=== PATIENT | female | born 1950 | race Caucasian/White ===

== ENCOUNTER 2018-04-16 18:37 | Inpatient (IN) | payer OTHER ==
[~2018-04-16] VITALS: Ht 162.6 cm; Wt 96.5 kg
--- NOTE | 2018-04-17 04:57 | NUR ---
SHIFT SUMMARY PT IS ALERT AND ORIENTED. PT IS CALM AND COOPERATIVE WITH CARE. PT CALLS APPROPRIATELY. PT IS INDEPENDENT IN THE ROOM. PT REPORTS ACCEPTABLE LEVEL OF PAIN UPON ADMISSION, NO PAIN MEDS GIVEN UP TO THIS POINT. PT DENIES NAUSEA, VOMITING, AND SOB. PT SLEPT MUCH OF THE NIGHT WITHOUT COMPLICATION. SURGICAL CONSULT CALLED TO ANSWERING SERVICE FOR DR. HOLBROOK. NO ACUTE CHANGES THIS SHIFT. WILL REPORT TO DAY NURSE.
[2018-04-17 04:59] LABS: BASOPHILS ABSOLUTE AUTO 0.03 K/mm3 (0.00-0.23); BASOPHILS PERCENT AUTO 0 % (0-2); EOSINOPHILS ABSOLUTE AUTO 0.02 K/mm3 (0.00-0.68); EOSINOPHILS PERCENT AUTO 0 % (0-6); Hematocrit 40.7 % (33.0-51.0); Hemoglobin 13.3 g/dL (11.5-16.0); IMMATURE GRAN ABSOLUTE AUTO 0.03 K/mm3 (0.00-0.10); IMMATURE GRAN PERCENT AUTO 0 % (0-1); LYMPHOCYTES ABSOLUTE AUTO 1.72 K/mm3 (0.84-5.20); LYMPHOCYTES PERCENT AUTO 16 % (21-46); MONOCYTES ABSOLUTE AUTO 0.91 K/mm3 (0.16-1.47); MONOCYTES PERCENT AUTO 8 % (4-13); Mean Corpuscular HGB 32.9 pg (26.0-34.0); Mean Corpuscular HGB Conc 32.7 g/dL (31.5-36.5); NEUTROPHILS ABSOLUTE AUTO 8.24 K/mm3 (1.96-9.15); NEUTROPHILS PERCENT AUTO 75 % (41-73); Platelet Count 277 K/mm3 (150-400); RDW Coefficient Variation 12.1 % (11.7-14.2); RDW Standard Deviation 45.7 fL (35.1-46.3); Red Blood Cell Count 4.04 M/mm3 (3.80-5.20); White Blood Cell Count 10.95 K/mm3 (4.00-11.30)
[2018-04-17 05:00] LABS: Mean Corpuscular Volume 101 fL (80-100)
[2018-04-17 05:22] LABS: Alanine Aminotransfer (ALT/SGP 440 U/L (12-78); Albumin, Blood 3.1 g/dL (3.4-5.0); Albumin/Globulin Ratio 0.9 (0.8-1.8); Alk Phos 250 U/L (50-136); Anion Gap 7 mmol/L (6-16); Aspartate Aminotrans (AST/SGOT 244 U/L (12-37); Bilirubin, Total 0.6 mg/dL (0.1-1.0); Blood Urea Nitrogen 13 mg/dL (8-24); CO2, Blood 28 mmol/L (21-32); Calcium, Blood 8.2 mg/dL (8.5-10.1); Chloride, Blood 104 mmol/L (98-108); Cholesterol 227 mg/dL (50-200); Globulin, Blood 3.4 g/dL (2.2-4.0); Glucose, Blood 202 mg/dL (70-99); HDL Cholesterol 57 mg/dL (>39); LDL/HDL RATIO 2.6; Low Density Lipoprotein Chol 149 mg/dL (0-110); Sodium, Blood 139 mmol/L (136-145); Total Protein, Blood 6.5 g/dL (6.4-8.2); Triglycerides 105 mg/dL (30-160); Very Low Density Lipoprot Chol 21 mg/dL (6-32)
[2018-04-17 05:26] LABS: Bun/Creatinine Ratio 14.8 (12.0-20.0); Creatinine, Blood 0.88 mg/dL (0.40-1.00); Glomerular Filtration Rate >60 (60-)
[2018-04-17 08:50] LABS: Magnesium, Blood 1.8 mg/dL (1.6-2.4)
--- NOTE | 2018-04-17 17:03 | NUR ---
SHIFT SUMMARY- P A/OX4, INDEP IN ROOM. PT REPORTS 5/10 ABD PAIN, R>L, PT REPORTS HAS IMPROVED T/O THE DAY, DENIES NEED FOR PAIN MEDICATIONS. LS CLEAR, ON RA. MILD NAUSEA THIS AM. PT NPO T/O THE DAY. Q6H BLOOD GLUCOSE. NO OTHER ACUTE CHANGES THIS SHIFT.
--- NOTE | 2018-04-18 04:38 | NUR ---
SHIFT SUMMARY NO ACUTE CHANGES THIS SHIFT. PT HAS RESTED OFF AND ON T/O THE NIGHT. PT CONTINUES TO COMPLAIN OF ABD PAIN, MILD NAUSEA AND SOME BLOATING. PT HAS NOT HAD A BM IN ABOUT TWO DAYS, AND REPORTS THAT SHE HAS NOT BEEN PASSING GAS. MEDICATED X1 FOR PAIN. SHE DECLINES ANYTHING FOR NAUSEA. IVF INFUSING ORDERED. IV ABX Q 6HR ORDERED. PT PLESANT AND COOPERATIVE WITH CARE. A/OX4. WILL CONTINUE TO MONITOR AND REPORT TO ONCOMING RN.
[2018-04-18 06:06] LABS: Alanine Aminotransfer (ALT/SGP 241 U/L (12-78); Albumin, Blood 2.9 g/dL (3.4-5.0); Albumin/Globulin Ratio 0.8 (0.8-1.8); Alk Phos 194 U/L (50-136); Anion Gap 8 mmol/L (6-16); Aspartate Aminotrans (AST/SGOT 72 U/L (12-37); Bilirubin, Direct 0.1 mg/dL (0.0-0.3); Bilirubin, Indirect 0.5 mg/dL (0.1-0.7); Bilirubin, Total 0.6 mg/dL (0.1-1.0); Blood Urea Nitrogen 8 mg/dL (8-24); Bun/Creatinine Ratio 9.2 (12.0-20.0); CO2, Blood 28 mmol/L (21-32); Chloride, Blood 102 mmol/L (98-108); Creatinine, Blood 0.87 mg/dL (0.40-1.00); Globulin, Blood 3.5 g/dL (2.2-4.0); Glomerular Filtration Rate >60 (60-); Glucose, Blood 154 mg/dL (70-99); Potassium, Blood 3.5 mmol/L (3.5-5.5); Sodium, Blood 138 mmol/L (136-145); Total Protein, Blood 6.4 g/dL (6.4-8.2)
--- NOTE | 2018-04-18 15:48 | NUR ---
Mrs. Matias has a jazmyn alma in a [employer] who is attentive and loving. She tells me she is most concerns about her . She has never been "sick" before, and this hospitalization has made her fearful of losing her. She admits she is the glue that hold the family together. She feels well loved and supported by her alma and family. Aria believes she is here b/c of gall bladder problems. She believes she will be cured and be able to return to her active life. I provided prayer and gentle spiritual direction to good effect. I will remain available.
--- NOTE | 2018-04-18 16:51 | NUR ---
SHIFT SUMMARY- PT A/OX4, INDEP IN ROOM. PT MEDICATED X1 THIS AM FOR ABD PAIN, PT REPORTS SHE FEELS MUCH BETTER THIS AFTERNOON AFTER A SHOWER AND STARTING ON CLEAR LIQUID DIET. BT HYPO, PT REPORTS FEELING BLOATED AND NO BM THIS SHIFT. NO OTHER ACUTE CHANGES THIS SHIFT.
--- NOTE | 2018-04-19 05:05 | NUR ---
SHIFT SUMMARY PT CONTINUES TO HAVE ABD DISCOMFORT. PT RESPONDED WELL TO TX. PT HAS SLEPT WELL THROUGHOUT SHIFT. PT HAD NO ACUTE ISSUES NOTED. PT IS CURRENTLY SLEEPING AND BREATHING EASY. CALL LIGHT IN REACH.
[2018-04-19 06:11] LABS: BASOPHILS ABSOLUTE AUTO 0.03 K/mm3 (0.00-0.23); BASOPHILS PERCENT AUTO 0 % (0-2); EOSINOPHILS ABSOLUTE AUTO 0.19 K/mm3 (0.00-0.68); EOSINOPHILS PERCENT AUTO 2 % (0-6); Hematocrit 36.4 % (33.0-51.0); Hemoglobin 11.8 g/dL (11.5-16.0); IMMATURE GRAN ABSOLUTE AUTO 0.08 K/mm3 (0.00-0.10); IMMATURE GRAN PERCENT AUTO 1 % (0-1); LYMPHOCYTES ABSOLUTE AUTO 1.37 K/mm3 (0.84-5.20); LYMPHOCYTES PERCENT AUTO 11 % (21-46); MONOCYTES ABSOLUTE AUTO 1.42 K/mm3 (0.16-1.47); MONOCYTES PERCENT AUTO 12 % (4-13); Mean Corpuscular HGB 32.2 pg (26.0-34.0); Mean Corpuscular HGB Conc 32.4 g/dL (31.5-36.5); Mean Corpuscular Volume 100 fL (80-100); Mean Platelet Volume 10.7 fL (9.1-12.4); NEUTROPHILS ABSOLUTE AUTO 9.06 K/mm3 (1.96-9.15); NEUTROPHILS PERCENT AUTO 75 % (41-73); Platelet Count 213 K/mm3 (150-400); RDW Standard Deviation 44.2 fL (35.1-46.3); Red Blood Cell Count 3.66 M/mm3 (3.80-5.20); White Blood Cell Count 12.15 K/mm3 (4.00-11.30)
[2018-04-19 06:39] LABS: Anion Gap 9 mmol/L (6-16); Blood Urea Nitrogen 7 mg/dL (8-24); Bun/Creatinine Ratio 8.4 (12.0-20.0); CO2, Blood 28 mmol/L (21-32); Chloride, Blood 101 mmol/L (98-108); Creatinine, Blood 0.83 mg/dL (0.40-1.00); Glomerular Filtration Rate >60 (60-); Glucose, Blood 140 mg/dL (70-99); Potassium, Blood 3.3 mmol/L (3.5-5.5); Sodium, Blood 138 mmol/L (136-145)
--- NOTE | 2018-04-19 17:13 | NUR ---
Initial Visit: Palliative Care Consult for advanced care planning and symptom management. Pt is pleasant and A&O x 4. She reports 5/10 pain in her upper abdomen and states a 6/10 pain is tolerable. She reports her pain is managed with current regimen. She also reports 3/7 anxiety and states this mainly due to thought of having surgery. She states that she also worries about her daughter that has health issues and her granddaughter has been making poor life choices. She states that she finds significant strength in the bible and GOD. Educated Pt on other distraction techniques such as deep breathing and visual distraction. She reports her is very supportive and would provide any care needs that she may have. Discussed advance directives and POLSTS and Pt expresses interest. Instructed on each section of POLST and AD. She reports that she will complete one when she gets home after discussing things with her . Instructed Pt to contact palliative care with any questions or concerns. Spoke with Pt's nurse Viktoria and she reports the Pt's pain is managed with current regimen. She reports no concerns at this time. Will remain available as needed
--- NOTE | 2018-04-19 17:35 | NUR ---
PT AOX4 AND COOPERATIVE OF ALL CARE. PT HAS BEEN RESTING IN BED TODAY. PT DENIES NEED FOR ANY PAIN OR NAUSEA MEDICATIONS TODAY AND STATED SHE WAS DOING WELL. NO DISTRESS NOTED AT THIS TIME.
--- NOTE | 2018-04-20 04:16 | NUR ---
SHIFT SUMMARY PT HAS HAD COMPLAINTS OF BLOATING/ GAS THAT IS CAUSING DISCOMFORT. PT TX PER EMAR AND RESPONDED WELL. PT HAS SLEPT WELL IN BETWEEN EPISODES OF DISCOMFORT. PT HAD NO ACUTE ISSUES NOTED. PT IS EAGER TO HAVE SX AND RESOLVE HER CURRENT ISSUE. PT IS SLEEPING NOW AND BREATHING EASY. CALL LIGHT IN REACH.
[2018-04-20 09:00] LABS: Alanine Aminotransfer (ALT/SGP 112 U/L (12-78); Albumin, Blood 2.7 g/dL (3.4-5.0); Albumin/Globulin Ratio 0.7 (0.8-1.8); Alk Phos 156 U/L (50-136); Anion Gap 8 mmol/L (6-16); Aspartate Aminotrans (AST/SGOT 21 U/L (12-37); Bilirubin, Total 0.7 mg/dL (0.1-1.0); Blood Urea Nitrogen 8 mg/dL (8-24); Bun/Creatinine Ratio 9.6 (12.0-20.0); CO2, Blood 28 mmol/L (21-32); Calcium, Blood 8.2 mg/dL (8.5-10.1); Chloride, Blood 103 mmol/L (98-108); Creatinine, Blood 0.84 mg/dL (0.40-1.00); Glomerular Filtration Rate >60 (60-); Glucose, Blood 121 mg/dL (70-99); Magnesium, Blood 1.9 mg/dL (1.6-2.4); Potassium, Blood 3.5 mmol/L (3.5-5.5); Sodium, Blood 139 mmol/L (136-145); Total Protein, Blood 6.7 g/dL (6.4-8.2)
--- NOTE | 2018-04-20 13:11 | NUR ---
History, Chart, Medications and Allergies reviewed before start of procedure. Patient confirms NPO status and agrees with scheduled surgery.
--- NOTE | 2018-04-20 14:34 | NUR ---
04/20/18 1434 Hoang Tavares PT ON SCHEDULED ANTIBIOTICS
--- NOTE | 2018-04-20 15:39 | NUR ---
PT RATES PAIN 10/10 . DECLINES NEED OF PAIN MED I TALKED WITH HER ABOUT IV VS PO AND LENGTH IT TAKES TO WORK AND SHE CONTINUES TO DENIES NEED OF IT I WENT OVER P[AIN SCALE WITH HER SHE CONTINUES TO RATE SHE IS PLEASANT TALKATIVE AT TIMES VERBALIZING HOW THANKFUL SHE IS THAT SHE FEELS SO MUCH BETTER
--- NOTE | 2018-04-20 17:44 | NUR ---
PT DOING WELL. AOX4 COMMING OUT OF HER PROCEDURE WELL NO NAUSEA REPORTED SINCE COMMING TO HER ROOM. PT DID GET TREATED FOR PAIN PER EMAR. PT WAS ABLE TO GET UP TO BEDSIDE COMMODE AND VOID. NO DISTRESS NOTED AT THIS TIME WILL MONITOR. VITALS HAVE BEEN STABLE.
--- NOTE | 2018-04-21 04:31 | NUR ---
SHIFT SUMMARY PT ALERT AND ORIENTED, UP INDEPENDENTLEY IN ROOM. IVF'S INFUSING WITHOUT DIFFICULTY. PT STATES SHE DOESN'T HAVE MUCH PAIN. DENIES PASSING ANY GAS OF YET. INSTRUCTED PT TO LET STAFF KNOW WHEN SHE STARTS TO PASS GAS. WILL CONTINUE TO MONITOR.
[2018-04-21] MEDS ORDERED: DOCU100 PO (13:02)
[2018-04-21] MEDS ORDERED: HYDR1TAB94 PO (13:02)
--- NOTE | 2018-04-21 13:43 | NUR ---
PATIENT D/C'D TO [facility] WITH . D/C INSTRUCTIONS AND EDUCATIONS DISCUSSED WITH PATIENT AND COPY PROVIDED. RX MEDICATIONS FAXED TO [facility] AND HARD SCRIPT FOR NORCO GIVEN TO PATIENT. PATIENT DENIES ANY FURTHER QUESTIONS OR CONCERNS.
== END 2018-04-21 13:43 | disposition home or self-care (01) | DRG 417 ==
LOC: ER 18:37 → MEDS 22:10 → ENPENDDIS 04-21 10:28 → MEDS 04-21 13:43
PROVIDERS: Hospitalist; Internal Medicine; Surgery; ADMIT Hospitalist
PROC: BF031ZZ Plain Radiography of Gallbladder and Bile Ducts using Low Osmolar Contrast (ICD-10-PCS; 2018-04-20)
PROC: 0FT44ZZ Resection of Gallbladder, Percutaneous Endoscopic Approach (ICD-10-PCS; principal; 2018-04-20 13:45)
DX: K80.00 Calculus of gallbladder with acute cholecystitis without obstruction (principal); K85.10 Biliary acute pancreatitis without necrosis or infection; K21.9 Gastro-esophageal reflux disease without esophagitis; E87.6 Hypokalemia; E66.01 Morbid (severe) obesity due to excess calories; Z88.5 Allergy status to narcotic agent; Z68.34 Body mass index [BMI] 34.0-34.9, adult
CPT/HCPCS: 36415; 74300; 76705; 80048; 80053; 80061; 80076; 82248; 82947; 83690; 83735; 85025; 88304; 96361; 96374; 96375; 99285-25; C1729; C9113; J0295; J1100; J1650; J2250; J2405; J2710; J3010; J7050; J7120

== ENCOUNTER → 2018-04-16 | Outpatient (CLI) | payer OTHER ==
[~2018-04-16] MED LIST: DOCU100 PO; HYDR1TAB94 PO
[2018-04-16 17:44] LABS: BASOPHILS ABSOLUTE AUTO 0.04 K/mm3 (0.00-0.23); BASOPHILS PERCENT AUTO 0 % (0-2); EOSINOPHILS ABSOLUTE AUTO 0.12 K/mm3 (0.00-0.68); EOSINOPHILS PERCENT AUTO 1 % (0-6); Hematocrit 44.3 % (33.0-51.0); Hemoglobin 14.9 g/dL (11.5-16.0); IMMATURE GRAN ABSOLUTE AUTO 0.04 K/mm3 (0.00-0.10); IMMATURE GRAN PERCENT AUTO 0 % (0-1); LYMPHOCYTES ABSOLUTE AUTO 2.15 K/mm3 (0.84-5.20); LYMPHOCYTES PERCENT AUTO 17 % (21-46); MONOCYTES ABSOLUTE AUTO 1.01 K/mm3 (0.16-1.47); MONOCYTES PERCENT AUTO 8 % (4-13); Mean Corpuscular HGB 32.4 pg (26.0-34.0); Mean Corpuscular HGB Conc 33.6 g/dL (31.5-36.5); Mean Corpuscular Volume 96 fL (80-100); NEUTROPHILS ABSOLUTE AUTO 9.11 K/mm3 (1.96-9.15); NEUTROPHILS PERCENT AUTO 73 % (41-73); Platelet Count 325 K/mm3 (150-400); RDW Coefficient Variation 12.1 % (11.7-14.2); RDW Standard Deviation 42.7 fL (35.1-46.3); White Blood Cell Count 12.47 K/mm3 (4.00-11.30)
[2018-04-16 18:00] LABS: Alanine Aminotransfer (ALT/SGP 502 U/L (12-78); Albumin, Blood 3.6 g/dL (3.4-5.0); Albumin/Globulin Ratio 0.9 (0.8-1.8); Alk Phos 302 U/L (40-126); Anion Gap 11 mmol/L (6-16); Aspartate Aminotrans (AST/SGOT 428 U/L (12-37); Bilirubin, Total 1.8 mg/dL (0.1-1.0); Blood Urea Nitrogen 14 mg/dL (8-24); Bun/Creatinine Ratio 12.3 (12.0-20.0); CO2, Blood 25 mmol/L (21-32); Calcium, Blood 9.3 mg/dL (8.5-10.1); Chloride, Blood 102 mmol/L (98-108); Creatinine, Blood 1.14 mg/dL (0.40-1.00); Globulin, Blood 4.1 g/dL (2.2-4.0); Glomerular Filtration Rate 47 (60-); Glucose, Blood 232 mg/dL (70-99); Potassium, Blood 3.8 mmol/L (3.5-5.5); Sodium, Blood 138 mmol/L (136-145); Total Protein, Blood 7.7 g/dL (6.4-8.2)
[2018-04-16 18:01] LABS: Amylase, Blood 3169 U/L (25-115)
== END ==
LOC: LAB SHORT 17:41 → LAB EV 17:41
PROVIDERS: Emergency Medicine
DX: R10.13 Epigastric pain (principal)
CPT/HCPCS: 80053; 82150; 83690; 85025

== ENCOUNTER → 2019-01-16 | Outpatient (CLI) | payer OTHER ==
[2019-01-18 13:57] LABS: Stool Occult Bld Immuno 1 Negative (NEGATIVE); Stool Occult Bld Immuno 2 Negative (NEGATIVE); Stool Occult Bld Immuno 3 Negative (NEGATIVE)
== END | disposition home or self-care (01) ==
LOC: LAB SHORT 15:07 → LAB 15:07 → LAB FUT 08-03 11:50
PROVIDERS: Nurse Practitioner Family
DX: Z00.00 Encounter for general adult medical examination without abnormal findings (principal); Z11.59 Encounter for screening for other viral diseases; Z12.11 Encounter for screening for malignant neoplasm of colon; E78.2 Mixed hyperlipidemia; R73.09 Other abnormal glucose
CPT/HCPCS: G0328

== ENCOUNTER → 2021-02-04 | Outpatient (CLI) | payer OTHER ==
[2021-02-06 14:19] LABS: Stool Occult Bld Immuno 1 Negative (NEGATIVE)
== END | disposition home or self-care (01) ==
LOC: LAB SHORT 14:00
PROVIDERS: Student in an Organized Health Care Education/Training Program
DX: Z12.11 Encounter for screening for malignant neoplasm of colon (principal)
CPT/HCPCS: G0328

== ENCOUNTER → 2022-04-12 | Outpatient (CLI) | payer OTHER | END | disposition home or self-care (01) | LOC: LAB SHORT 16:28 | DX: N39.0 Urinary tract infection, site not specified (principal) | CPT/HCPCS: 87086 ==

== ENCOUNTER → 2022-10-06 | Outpatient (CLI) | payer OTHER ==
[2022-10-06 14:55] LABS: Anion Gap 8 mmol/L (6-16); Blood Urea Nitrogen 20 mg/dL (8-24); Bun/Creatinine Ratio 22.2 (12.0-20.0); CHOL/HDL RATIO 3.8; CO2, Blood 23 mmol/L (21-32); Calcium, Blood 9.2 mg/dL (8.5-10.1); Chloride, Blood 110 mmol/L (98-108); Cholesterol 193 mg/dL (50-200); Glomerular Filtration Rate 68 (60-); Glucose, Blood 154 mg/dL (70-99); HDL Cholesterol 51 mg/dL (>39); LDL/HDL RATIO 2.1; Low Density Lipoprotein Chol 106 mg/dL (0-110); Potassium, Blood 4.2 mmol/L (3.5-5.5); Sodium, Blood 141 mmol/L (136-145); Triglycerides 181 mg/dL (30-160); Very Low Density Lipoprot Chol 36 mg/dL (6-32)
== END | disposition home or self-care (01) ==
LOC: LAB 14:24 → LAB SHORT 14:24
PROVIDERS: Family Medicine
DX: E11.21 Type 2 diabetes mellitus with diabetic nephropathy (principal); E11.42 Type 2 diabetes mellitus with diabetic polyneuropathy; E11.69 Type 2 diabetes mellitus with other specified complication; E11.65 Type 2 diabetes mellitus with hyperglycemia; E11.22 Type 2 diabetes mellitus with diabetic chronic kidney disease; N18.31 Chronic kidney disease, stage 3a; E78.5 Hyperlipidemia, unspecified
CPT/HCPCS: 80048; 80061; 83036; 84681